=== PATIENT | male | born 1960 | race Caucasian/White ===

== ENCOUNTER 2018-03-13 19:42 | Inpatient (IN) | payer MEDICARE, MEDICAID ==
--- NOTE | 2018-03-13 20:03 | ED Physician Chart ---
ED Chief Complaint/HPI - Patient Information Date Seen:: 03/13/18 Time Seen:: 19:50 Chief Complaint:: increased agitation History of Present Illness:: Patient has reportedly been demonstrating increased agitation at his extended care facility. Allergies:: Allergies Allergy/AdvReac Type Severity Reaction Status Date / Time Penicillins Allergy Verified 03/13/18 19:55 Tetracyclines Allergy Verified 03/13/18 19:55 Historian:: Patient Review:: Transfer documents Reviewed ED Review of Systems - Review of Systems General/Constitutional: No fever, No chills, No weight loss, No weakness, No diaphoresis, No edema, No loss of appetite Skin: No skin lesions, No rash, No bruising Head: No headache, No light-headedness Eyes: No loss of vision, No pain, No diplopia ENT: No earache, No nasal drainage, No sore throat, No tinnitus Neck: No neck pain, No swelling, No thyromegaly, No stiffness, No mass noted Cardio Vascular: No chest pain, No palpitations, No PND, No orthopnea, No edema Pulmonary: No SOB, No cough, No sputum, No wheezing GI: No nausea, No vomiting, No diarrhea, No pain, No melena, No hematochezia, No constipation, No hematemesis G/U: No dysuria, No frequency, No hematuria Musculoskeletal: No bone or joint pain, No back pain, No muscle pain Endocrine: No polyuria, No polydipsia Psychiatric: Depression, No anxiety, No suicidal ideation Hematopoietic: No bruising, No lymphadenopathy Allergic/Immuno: No urticaria, No angioedema Neurological: No syncope, No focal symptoms, No weakness, No paresthesia, No headache, No seizure, No dizziness, No confusion, No vertigo ED Past Medical History - Past Medical History Past Medical History: HTN, DM, Asthma/COPD, Other (major depression; abdominal wall cellulitis) Family History: None Social History: Smoker, Alcohol, Other (plus about 5 cigarettes a day; drinks alcohol occasionally) Surgical History: other (colostomy; all tooth extracted) Psychiatricy History: Depression, Schizophrenia Medication: Reviewed Family Medical History - Family Member Mother History Unknown: Yes ED Physical Exam - Physical Examination General/Constitutional: Awake, Well-developed, well-nourished, Alert, No distress, GCS 15, Non-toxic appearing, Ambulatory Head: Atraumatic Eyes: Lids, conjuctiva normal, PERRL, EOMI Skin: No ecchymosis, Well hydrated, No lymphadenopathy Other Skin comments:: 2 out of 4 erythema both lower legs; about 3 cm of erythema adjacent to the lateral edge of colostomy bag. ENMT: External ears, nose nl, Nasal exam nl Other ENMT comments:: Edentulous Neck: Nontender, Full ROM w/o pain, No JVD, No nuchal rigidity, No bruit, No mass, No stridor Respiratory: Nl effort/Exclusion Other Respiratory comments:: Diffusely decreased breath sounds Cardio Vascular: RRR, No murmur, gallop, rubs, NL S1 S2 GI: No tenderness/rebounding/guarding, No organomegaly, No hernia, Normal BS's, No mass/bruits, No McBurney tenderness Other GI comments:: Colostomy bag left lower quadrant : No CVA tenderness Extremities: No tenderness or effusion, Full ROM, normal strength in all extremities, No edema, Normal digits & nails Neuro/Psych: Alert/oriented, DTR's symmetric, Normal sensory exam, Normal motor strength, Judgement/insight normal, Mood normal, Normal gait, No focal deficits Misc: Normal back, No paraspinal tenderness ED Labs/Radiology/EKG Results - Lab Results Results: Abnormal Lab Results 03/13/18 03/13/18 20:15 20:15 WBC 11.8 H RBC 5.23 Hgb 14.8 Hct 44.8 MCV 85.7 MCH 28.3 MCHC Differential 33.1 RDW 14.8 Plt Count 266 MPV 8.3 Neutrophils % 77.0 Lymphocytes % 11.8 L Monocytes % 8.8 Eosinophils % 2.4 Basophils % 0.0 Sodium 139 Potassium 4.0 Chloride 101 Carbon Dioxide 31.6 H Anion Gap 10.4 BUN 13 Creatinine 1.1 Est GFR ( Amer) > 60.0 Est GFR (Non-Af Amer) > 60.0 BUN/Creatinine Ratio 11.8 Glucose 126 H Calcium 9.8 Total Bilirubin 0.2 L AST 12 L ALT 17 Alkaline Phosphatase 63 Total Protein 6.7 Albumin 3.6 L Globulin 3.1 Albumin/Globulin Ratio 1.2 Triglycerides 220 H Cholesterol 173 LDL Cholesterol Direct 116 HDL Cholesterol 39 - Radiology Results Results: Chest x-ray showed pleural effusion left base; no infiltrate - EKG Interpretations Rate & Rhythm: EKG showed a sinus tach at a rate of 112 Roper: normal Comments:: Low-voltage ED Assessment - Assessment General Assessment: Abdominal wall cellulitis lateral to the colostomy bag may be the cause of the patient's leukocytosis. The cellulitis is not extensive and can probably be treated with oral antibiotics. Will give the patient Keflex 500 mg before admission to [facility] ED Septic Shock - . Is Septic Shock (SBP<90, OR Lactate>4 mmol\L) present?: No ED Reassessment (Disposition) - Reassessment Reassessment Condition:: Unchanged - Diagnosis Diagnosis:: Schizophrenia with agitation; abdominal wall cellulitis - Patient Disposition Admitted to:: [facility] Condition at Disposition:: Stable, Unchanged
[2018-03-13 20:26] LABS: % EOSINOPHILS 2.4 % (0.0-5.0); % LYMPHOCYTES 11.8 % (20.0-50.0); % MONOCYTES 8.8 % (2.0-10.0); EOSINOPHILE ABSOLUTE 0.3 Th/cmm (0.1-0.4); HEMATOCRIT 44.8 % (41.0-60); HEMOGLOBIN 14.8 gm/dL (12-16); LYMPHOCYTE ABSOLUTE 1.4 Th/cmm (1.5-3.0); MEAN CELL VOLUME 85.7 fl (80-99); MEAN CORPUSCULAR HEMOGLOBIN 28.3 pg (26.0-30.0); MEAN CORPUSCULAR HGB CONC 33.1 pg (28.0-36.0); MEAN PLATELET VOLUME 8.3 fl; NEUTROPHILE ABSOLUTE 9.1 Th/cmm (1.8-8.0); PLATELET COUNT 266 Th/cmm (150-400); RED BLOOD COUNT 5.23 Mil/cmm (4.30-5.70); RED CELL DISTRIBUTION WIDTH 14.8 % (11.5-20.0); WHITE BLOOD COUNT 11.8 Th/cmm (4.8-10.8)
[2018-03-13 20:44] LABS: ALB/GLOB RATIO 1.2 (1.0-1.8); ALBUMIN 3.6 gm/dL (4.2-5.5); ALKALINE PHOSPHATASE 63 U/L (34-104); ANION GAP 10.4 (7.0-16.0); BILIRUBIN,TOTAL 0.2 mg/dL (0.3-1.0); BUN - UREA NITROGEN 13 mg/dL (7-25); CALCIUM SERUM 9.8 mg/dL (8.6-10.3); CARBON DIOXIDE 31.6 mEq/L (21.0-31.0); CHLORIDE 101 mEq/L (98-107); CHOLESTEROL 173 mg/dL (<200); CREATININE - SERUM 1.1 mg/dL (0.7-1.3); GFR AFRICAN-AMERICAN > 60.0 ml/min (>90); GFR NON AFRICAN-AMERICAN > 60.0 ml/min; GLUCOSE 126 mg/dL (70-105); HDL -HIGH DENSITY LIPOPROTEIN 39 mg/dL (23-92); SGOT 12 U/L (13-39); SGPT/ALT 17 U/L (7-52); SODIUM SERUM 139 mEq/L (136-145); TOTAL PROTEIN,SERUM 6.7 gm/dL (6.0-8.3); TRIGLYCERIDES 220 mg/dL (<150)
[2018-03-13 20:53] LABS: URINE BILIRUBIN NEGATIVE (NEGATIVE); URINE BLOOD SMALL (NEGATIVE); URINE GLUCOSE (UA) NEGATIVE (NEGATIVE); URINE KETONE NEGATIVE (NEGATIVE); URINE LEUKOCYTE ESTERASE NEGATIVE (NEGATIVE); URINE MICROSCOPIC INDICATED? YES; URINE NITRATE NEGATIVE (NEGATIVE); URINE PROTEIN 100 mg/dL (NEGATIVE); URINE SOURCE CLEAN C; URINE UROBILINOGEN 0.2 E.U./dL (0.2 - 1.0)
[2018-03-13 21:37] LABS: URINE CLARITY CLEAR (CLEAR); URINE COLOR YELLOW
[2018-03-13 21:39] LABS: URINE RBC NONE SEEN /hpf (0-5)
[2018-03-13 21:40] LABS: URINE BACTERIA FEW /hpf (NONE SEEN); URINE EPITHELIAL CELLS NONE SEEN /lpf (FEW)
[2018-03-14 00:52] VITALS: BP 137/102
[2018-03-14] MEDS ORDERED: Fleet Enema 135 mL RC PRN (01:20)
[2018-03-14] MEDS ORDERED: Magnesium Hydroxide (MOM) 30 mL UDC PO PRN (01:20)
[2018-03-14] MEDS ORDERED: Albuterol/Ipratropium Neb 3 ML AERS HHN PRN (01:20)
--- NOTE | 2018-03-14 07:43 | Diagnostic Imaging Report ---
CHEST X-RAY: AP view INDICATION: Leukocytosis COMPARISON: None FINDINGS: There is elevation of the left hemidiaphragm with small left effusion. Increased interstitial lung markings are also noted. Left basal subsegmental atelectasis versus scarring is noted. Borderline cardiomegaly is noted. Degenerative changes of the spine are noted. IMPRESSION: Small left pleural effusion. Increased interstitial lung markings. A mild degree of congestion cannot be excluded. Left basal subsegmental atelectasis versus scarring. No focal consolidation identified.
[2018-03-14] MEDS: APAP/Oxycodone 5/325mg Tab PO PRN ×2 (11:09→17:44)
[2018-03-14] MEDS: Benztropine 1 MG TAB PO SCH ×2 (11:11→17:44)
--- NOTE | 2018-03-14 11:26 | Psychiatric Evaluation ---
DATE OF SERVICE: 03/13/2018 IDENTIFYING INFORMATION: The patient is a 58-year-old male. CHIEF COMPLAINT: "I do not know." HISTORY OF PRESENT ILLNESS: The patient was referred because of increased agitation at an extended care facility. The patient himself was a poor historian. He felt he was 60 years of age. He is conserved. He has a public guardian. He does not know why he is conserved. He is unable to participate in meaningful conversation. He got angry because of my questioning line. He admits to using weed in the past, but not recently. He believes he was in [place]. He knows he is in the hospital, he is not sure why. He said he conserved himself, he felt to like it. He is very inappropriate and sarcastic. He has a colostomy bag. All his teeth are extracted. PAST PSYCHIATRIC HISTORY: He has history of multiple prior admissions, apparently with history of some mental disorder that he was not sure of. He also has a history of depression and schizophrenia, but he was unable to tell me. He said he is always thomas. When I asked him he was in longterm, he said yes, but could not tell me why. PAST MEDICAL HISTORY: Hypertension, diabetes mellitus, asthma, COPD. He has abdominal wall cellulitis. ALLERGIES: HE IS ALLERGIC TO FISH-CONTAINING PRODUCTS, PENICILLIN, AND TETRACYCLINE. CURRENT MEDICATIONS: Include APAP, oxycodone, aspirin, and Cogentin 2 mg twice a day. He is on Apresoline for his blood pressure. He is on Risperdal 2 mg twice a day. FAMILY AND SOCIAL HISTORY: He smokes 5 cigarettes a day. He drinks alcohol occasionally. The patient is single, never . Later, he said he has 2 children, 2 girls; first, he said he did not know. He has 12th grade education. He worked as a school bus mechanic and car spotter. He used to use weed and alcohol in the past, but unable to give me exact information. He denies family psychotic disorder. He is a poor historian. He is always thomas he reports. He was in longterm, cannot tell me why. He got upset, stopped talking to me. He said he is here because his medication needs to be evaluated. MENTAL STATUS EXAMINATION: The patient is appropriately dressed, not very well groomed. He looked disheveled, disorganized, and internally preoccupied. His affect is constricted. Thoughts are concrete. Speech is coherent. He knew the date being 03/14/2018. He did not know where he was, but he thought he was at [place]. He is not sure why he is here. He reports that he sleeps well and eats well. He denies any current auditory or visual hallucination. He was paranoid towards me. He is easily agitated. He reports he is always thomas. He denies any intent to harm self or anybody. Denies any auditory or visual hallucination; however, he is a poor historian. His long-term memory is poor, cannot remember his age exactly, he believes he is 60. Recent memory is poor, he cannot remember events led to his admission. He believes he is here for medication adjustment. According to records, he was agitated, which he did not acknowledge. His immediate memory is fair, can concentrate enough to cooperate. Insight and judgment are impaired. IMPRESSION: Schizoaffective disorder, rule out chronic paranoid schizophrenia. MEDICAL DIAGNOSES: 1. Hypertension. 2. Diabetes mellitus. 3. Asthma. 4. Chronic obstructive pulmonary disease. 5. Abdominal cellulitis. PLAN: The patient will be continued with Risperdal. Adjust the medications as needed. We will do group therapy, milieu therapy, and individual therapy. ESTIMATED LENGTH OF STAY: 3-7 days. DISCHARGE CRITERIA: Decrease in agitation, irritability and paranoia. After discharge, outpatient treatment. JOB# [id number]
[2018-03-14] MEDS: Aspirin 81mg Chewable Tab PO SCH (16:57)
[2018-03-14] MEDS: Multivitamin w/ Minerals Tab PO SCH (16:57)
[2018-03-14] MEDS: Vitamin D3 2,000 IU SGL PO SCH (16:57)
--- NOTE | 2018-03-15 05:18 | History & Physical ---
ADMIT DATE: 03/14/2018 CHIEF COMPLAINT: Increased agitation. HISTORY OF PRESENT ILLNESS: The patient is a 58-year-old male with past medical history of hypertension, diabetes mellitus type 2, asthma, COPD, depression, and colostomy on the left lower quadrant, admitted from nursing facility for increased agitation. The patient was admitted to the Geropsych Unit for management of the psychosis. It was found that he had edema around the colostomy site. PAST MEDICAL HISTORY: Includes diabetes mellitus type 2, hypertension, asthma, COPD, major depression, and abdominal wall cellulitis. ALLERGIES: THE PATIENT IS ALLERGIC TO FISH CONTAINING PRODUCTS, PENICILLIN, AND TETRACYCLINE. SOCIAL HISTORY: The patient lives at nursing facility. He has no history of smoking. FAMILY HISTORY: Noncontributory. REVIEW OF SYSTEMS: GENERAL: The patient has no fever, no chills. HEENT: No diplopia, no photophobia, no sore throat. RESPIRATORY: No cough, no shortness of breath. CARDIOVASCULAR: No chest pain or palpitation. GASTROINTESTINAL: No nausea, no vomiting, and no diarrhea. The patient has abdominal pain next to the colostomy site in left lower quadrant. It is associated with redness. GENITOURINARY: No dysuria. NEUROLOGIC: No headache, no dizziness, and no focal weakness. PHYSICAL EXAMINATION: VITAL SINGS: Current vital signs shows temperature is 97.8, pulse is 97, respirations 20, blood pressure is 141/76, and oxygen saturation is 97%. GENERAL: The patient is comfortable, lying in the bed, not in acute distress. HEENT: Head is normocephalic, atraumatic. Oral cavity is moist, pink tongue. Eyes: No pallor, no icterus. PERRLA, EOMI. NECK: Supple. No JVD. No bruit. Trachea in midline. CHEST: Bilateral breath sounds. No crackles or wheezing. HEART: S1, S2 within normal limits. Regular rhythm. No murmur. No gallop. ABDOMEN: Soft, nontender, nondistended. Bowel sounds present. The patient has swelling and erythema around the G-tube site mainly in the anterolateral aspect. EXTREMITIES: No cyanosis, no clubbing, and no edema. NEUROLOGIC: He is alert, awake, and oriented x 3. LABORATORY DATA: Current lab shows WBC count is 11,800, hemoglobin is 14.8, hematocrit is 44.8, platelets are 266,000, neutrophils 77%. Sodium is 139, potassium is 4, chloride is 101, bicarbonate is 31.6, BUN is 13, creatinine is 1.1, and glucose is 126. Urinalysis, negative nitrites, negative leukoesterase. RPR is nonreactive. IMPRESSION: 1. Agitation. 2. Diabetes mellitus type 2, controlled. 3. Hypertension. 4. Abdominal wall cellulitis, colostomy malfunction. 5. Hyperlipidemia. 6. Obesity. RECOMMENDATIONS AND PLAN: We will continue home medications. start Levaquin and Flagyl. Called surgical consultation, Dr. Sergio Denis. JOB# [id number] [place]
[2018-03-15] MEDS: Multivitamin w/ Minerals Tab PO SCH (08:55)
[2018-03-15] MEDS: Vitamin D3 2,000 IU SGL PO SCH (08:56)
[2018-03-15] MEDS: Aspirin 81mg Chewable Tab PO SCH (08:57)
[2018-03-15] MEDS: Benztropine 1 MG TAB PO SCH ×2 (08:57→17:00)
[2018-03-15] MEDS: APAP/Oxycodone 5/325mg Tab PO PRN ×3 (09:12→21:34)
--- NOTE | 2018-03-15 14:55 | Infectious Disease Prog Note ---
Infectious Disease Subjective - Review of Systems Service Date: 03/15/18 Subjective: There is no new change, no fever. Infectious Disease Objective - Results Result Diagrams: 03/13/18 20:15 03/13/18 20:15 Recent Labs: Laboratory Last Values WBC 11.8 Th/cmm (4.8-10.8) H 03/13/18 20:15 RBC 5.23 Mil/cmm (4.30-5.70) 03/13/18 20:15 Hgb 14.8 gm/dL (12-16) 03/13/18 20:15 Hct 44.8 % (41.0-60) 03/13/18 20:15 MCV 85.7 fl (80-99) 03/13/18 20:15 MCH 28.3 pg (26.0-30.0) 03/13/18 20:15 MCHC Differential 33.1 pg (28.0-36.0) 03/13/18 20:15 RDW 14.8 % (11.5-20.0) 03/13/18 20:15 Plt Count 266 Th/cmm (150-400) 03/13/18 20:15 MPV 8.3 fl 03/13/18 20:15 Neutrophils % 77.0 % (40.0-80.0) 03/13/18 20:15 Lymphocytes % 11.8 % (20.0-50.0) L 03/13/18 20:15 Monocytes % 8.8 % (2.0-10.0) 03/13/18 20:15 Eosinophils % 2.4 % (0.0-5.0) 03/13/18 20:15 Basophils % 0.0 % (0.0-2.0) 03/13/18 20:15 Sodium 139 mEq/L (136-145) 03/13/18 20:15 Potassium 4.0 mEq/L (3.5-5.1) 03/13/18 20:15 Chloride 101 mEq/L (98-107) 03/13/18 20:15 Carbon Dioxide 31.6 mEq/L (21.0-31.0) H 03/13/18 20:15 Anion Gap 10.4 (7.0-16.0) 03/13/18 20:15 BUN 13 mg/dL (7-25) 03/13/18 20:15 Creatinine 1.1 mg/dL (0.7-1.3) 03/13/18 20:15 Est GFR ( Amer) > 60.0 ml/min (>90) 03/13/18 20:15 Est GFR (Non-Af Amer) > 60.0 ml/min 03/13/18 20:15 BUN/Creatinine Ratio 11.8 03/13/18 20:15 Glucose 126 mg/dL (70-105) H 03/13/18 20:15 Calcium 9.8 mg/dL (8.6-10.3) 03/13/18 20:15 Total Bilirubin 0.2 mg/dL (0.3-1.0) L 03/13/18 20:15 AST 12 U/L (13-39) L 03/13/18 20:15 ALT 17 U/L (7-52) 03/13/18 20:15 Alkaline Phosphatase 63 U/L (34-104) 03/13/18 20:15 Total Protein 6.7 gm/dL (6.0-8.3) 03/13/18 20:15 Albumin 3.6 gm/dL (4.2-5.5) L 03/13/18 20:15 Globulin 3.1 gm/dL 03/13/18 20:15 Albumin/Globulin Ratio 1.2 (1.0-1.8) 03/13/18 20:15 Triglycerides 220 mg/dL (<150) H 03/13/18 20:15 Cholesterol 173 mg/dL (<200) 03/13/18 20:15 LDL Cholesterol Direct 116 mg/dL (75-193) 03/13/18 20:15 HDL Cholesterol 39 mg/dL (23-92) 03/13/18 20:15 TSH 1.66 uIU/ml (0.34-5.60) 03/13/18 20:15 Urine Source CLEAN C 03/13/18 20:25 Urine Color YELLOW 03/13/18 20:25 Urine Clarity CLEAR (CLEAR) 03/13/18 20:25 Urine pH 6.0 (4.6 - 8.0) 03/13/18 20:25 Ur Specific [place] 1.015 (1.005-1.030) 03/13/18 20:25 Urine Protein 100 mg/dL (NEGATIVE) H 03/13/18 20:25 Urine Glucose (UA) NEGATIVE mg/dL (NEGATIVE) 03/13/18 20:25 Urine Ketones NEGATIVE mg/dL (NEGATIVE) 03/13/18 20:25 Urine Blood SMALL (NEGATIVE) H 03/13/18 20:25 Urine Nitrate NEGATIVE (NEGATIVE) 03/13/18 20:25 Urine Bilirubin NEGATIVE (NEGATIVE) 03/13/18 20:25 Urine Urobilinogen 0.2 E.U./dL (0.2 - 1.0) 03/13/18 20:25 Ur Leukocyte Esterase NEGATIVE (NEGATIVE) 03/13/18 20:25 Urine RBC NONE SEEN /hpf (0-5) 03/13/18 20:25 Urine WBC 2-5 /hpf (0-5) 03/13/18 20:25 Ur Epithelial Cells NONE SEEN /lpf (FEW) 03/13/18 20:25 Urine Bacteria FEW /hpf (NONE SEEN) 03/13/18 20:25 RPR NONREACTIVE (NONREACTIVE) 03/13/18 20:15 - Physical Exam Vitals and I&O: Vital Signs Temp 0 F 03/15/18 06:25 Pulse 94 03/15/18 07:06 Resp 20 03/15/18 07:06 BP 141/76 03/15/18 08:57 Pulse Ox 95 03/15/18 07:06 Intake & Output 03/14/18 03/15/18 03/15/18 18:59 06:59 18:59 Intake Total 1000 240 Balance 1000 240 Intake: Oral 1000 240 Other: # Voids 4 3 # Bowel Movements 1 0 Stool Characteristics Liquid Brown Active Medications: Current Medications Acetaminophen (Tylenol) 650 mg PO Q6HR PRN PRN Reason: Pain (Mild) Stop: 05/13/18 01:19 Albuterol/Ipratropium (Duoneb Neb) 3 ml HHN Q6HR PRN PRN Reason: Shortness of Breath Stop: 05/13/18 01:19 Aspirin (Aspirin Chewable) 81 mg PO DAILY [facility] [place] Stop: 05/13/18 08:59 Last Admin: 03/15/18 08:57 Dose: 81 mg Benztropine Mesylate (Cogentin) 2 mg PO BID [facility] [place] Stop: 05/13/18 08:59 Last Admin: 03/15/18 08:57 Dose: 2 mg Bisacodyl (Dulcolax 10 Mg Supp) 10 mg RC DAILY PRN PRN Reason: Constipation Stop: 05/13/18 01:19 Cyanocobalamin (Vitamin B12) mcg IM QMONTH [facility] [place] Stop: 05/13/18 01:29 Docusate Sodium (Colace) 200 mg PO DAILY [facility] [place] Stop: 05/13/18 08:59 Last Admin: 03/15/18 08:55 Dose: 200 mg Furosemide (Lasix) 20 mg PO Q12HR [facility] [place] Stop: 05/13/18 08:59 Last Admin: 03/15/18 08:57 Dose: 20 mg Hydralazine HCl (Apresoline) 25 mg PO Q6HR PRN PRN Reason: SBP >160 Stop: 05/13/18 01:19 Levofloxacin (Levaquin) 500 mg PO DAILY [facility] [place] Stop: 05/14/18 08:59 Last Admin: 03/15/18 08:56 Dose: 500 mg Lorazepam (Ativan) 0.5 mg PO Q4HR PRN; Protocol PRN Reason: Anxiety Stop: 04/13/18 00:52 Magnesium Hydroxide (Milk Of Magnesia) 30 ml PO HS PRN PRN Reason: Constipation Stop: 05/13/18 01:19 Metformin HCl (Glucophage) 500 mg PO BIDWM [facility] [place] Stop: 05/13/18 07:59 Last Admin: 03/15/18 08:54 Dose: 500 mg Ondansetron HCl (Zofran Odt) 4 mg PO Q6HR PRN PRN Reason: Nausea / Vomiting Stop: 05/13/18 01:19 Oxycodone/Acetaminophen (Percocet 5/325mg Oral Tab) 1 tab PO Q4HR PRN PRN Reason: Pain (Severe) Stop: 05/13/18 01:19 Last Admin: 03/15/18 09:12 Dose: 1 tab Risperidone (Risperdal) 2 mg PO BID [facility] [place]; Protocol Stop: 05/13/18 08:59 Last Admin: 03/15/18 08:58 Dose: 2 mg Sodium Phosphate (Fleet Enema) 135 ml RC Q48HR PRN PRN Reason: Constipation Stop: 05/13/18 01:19 Vitamin D (Vitamin D3) 2,000 iu PO DAILY [facility] Stop: 05/13/18 08:59 Last Admin: 03/15/18 08:56 Dose: 2,000 iu Zolpidem Tartrate (Ambien) 5 mg PO HSMR1 PRN PRN Reason: Insomnia Stop: 05/13/18 00:52 General: no acute distress, well developed, well nourished HEENT: atraumatic, normocephalic, PERRLA, EOMI Neck: supple, no thyromegaly Cardiovascular: S1S2, regular Lungs: clear to auscultation bilaterally, clear to percussion Abdomen: soft, other (colostomy on the LLQ with surrounding erythema), no tender , no distended Extremities: no cyanosis, no clubbing, no edema Neurological: awake, alert, oriented Skin: intact Infectious Disease Assmt/Plan - Assessment Assessment: 1. Agitation. 2. Diabetes mellitus type 2, controlled. 3. Hypertension. 4. Abdominal wall cellulitis, colostomy malfunction. 5. Hyperlipidemia. 6. Obesity. - Plan Plan: Surgery consult. Continue Levaquin and flagyl.
--- NOTE | 2018-03-15 23:37 | Progress Notes ---
DATE: 03/15/2018 SUBJECTIVE: The patient in the hospital with increased agitation, not a good historian, states he is here for "med check." States he is homeless, does not really know why he is here. Apparently, the patient may also be conserved. It seems that he is conserved. The patient really does not know why he is here or what is going on. Per staff, sleeping about 6-1/2 hours, allowing ADLs, gets angry at times, impulsive, unpredictable, had been quite agitated at previous place of residence. ASSESSMENT: The patient remains asymptomatic, not safe for a lower level of care. Ongoing symptoms, some forgetfulness, not a good historian, conserved at this time. PLAN: We will continue to monitor. Continue dosing of Risperdal. Monitor for side effects. JOB# [id number]
[2018-03-16] MEDS: Vitamin D3 2,000 IU SGL PO SCH (08:31)
[2018-03-16] MEDS: Aspirin 81mg Chewable Tab PO SCH (08:32)
[2018-03-16] MEDS: Benztropine 1 MG TAB PO SCH ×2 (08:32→16:57)
[2018-03-16] MEDS: Multivitamin w/ Minerals Tab PO SCH (08:32)
[2018-03-16] MEDS: APAP/Oxycodone 5/325mg Tab PO PRN ×2 (08:44→16:58)
--- NOTE | 2018-03-16 23:25 | Progress Notes ---
DATE: 03/16/2018 SUBJECTIVE: The patient is currently in the hospital with increased agitation, conserved. He has a local guardian. The patient states he is here for " a checkup," does not know really what is going on. Unable to really participate in any self-care planning. He has a colostomy bag, sleeping for about 7.5 hours, poor orientation, but able to make needs known and is focused on smoking. Mostly, he keeps to himself, remains somewhat impulsive, unpredictable, and impoverished thought processes, withdrawn. ASSESSMENT: The patient remains symptomatic, impulsive, still with unruly behavior, sometimes gets agitated towards staff. Medications were noted. PLAN: We will continue to monitor. Continue Risperdal. Consider dose increase. JOB# [id number]
--- NOTE | 2018-03-17 02:16 | Progress Notes ---
DATE: 03/16/2018 SUBJECTIVE: The patient is lying in the bed, not in acute distress. No fever, no chills. OBJECTIVE: VITAL SIGNS: Current vital signs shows temperature is 97.8, pulse 87, respirations 18, blood pressure 133/76. GENERAL: The patient is comfortable lying in the bed, in no acute distress. HEENT: Head is normocephalic, atraumatic. Oral cavity moist, pink. Eyes: No pallor, no icterus. PERRLA, EOMI. NECK: Supple, no JVD, no bruit. Trachea midline. CHEST: Bilateral breath sounds. No crackles or wheezing. HEART: S1, S2 within normal limits. Regular rhythm. No murmur, no gallop. ABDOMEN: Soft, nontender, nondistended. Bowel sounds present. The patient has swelling and erythema around the colostomy site, mainly in the anterolateral aspect. EXTREMITIES: No cyanosis, no clubbing, no edema. NEUROLOGIC: Alert, awake, oriented x 3. LABORATORY DATA: Current lab shows WBC 11,800, hemoglobin 14.8, hematocrit 44.8, platelets are 266,000, neutrophils 77%. Sodium 139, potassium 4, chloride 101, bicarb is 32, BUN is 13, creatinine 1.1, glucose is ____. IMPRESSION: 1. Agitation. 2. Diabetes mellitus type 2. 3. Hypertension. 4. Abdominal wall cellulitis. Colostomy site cellulitis. 5. Hyperlipidemia. 6. Obesity. RECOMMENDATION: Waiting for surgical consultation. Continue Levaquin and Flagyl. JOB# [id number]
[2018-03-17] MEDS: Aspirin 81mg Chewable Tab PO SCH (08:20)
[2018-03-17] MEDS: Benztropine 1 MG TAB PO SCH ×2 (08:20→17:30)
[2018-03-17] MEDS: Vitamin D3 2,000 IU SGL PO SCH (08:20)
[2018-03-17] MEDS: APAP/Oxycodone 5/325mg Tab PO PRN ×2 (08:21→21:24)
[2018-03-17] MEDS: Multivitamin w/ Minerals Tab PO SCH (08:21)
[2018-03-17] MEDS ORDERED: Probiotic Screen MC PRN (09:15)
--- NOTE | 2018-03-17 14:47 | Progress Notes ---
DATE: 03/17/2018 Case was discussed with staff of the patient, reviewed records. The patient continues to be unable to make safe plan for self-care. Continues to be demented, confused. Does not really knows still why he is here, unable to assess reality, looking disheveled, disorganized. He has a colostomy bag. His sleep and appetite is better. He is compliant with medication with no side effects. No sedation, no nausea, no extrapyramidal symptoms. He is on Risperdal 2 mg twice a day with no side effects. We will continue the patient in group therapy, milieu therapy, and adjust medication as needed. JOB# [id number]
[2018-03-18] MEDS: Vitamin D3 2,000 IU SGL PO SCH (09:11)
[2018-03-18] MEDS: Benztropine 1 MG TAB PO SCH ×2 (09:11→16:15)
[2018-03-18] MEDS: Lactobacillus Rhamnosus GG 15 Billion CFU CAP.SPRINK PO SCH (09:11)
[2018-03-18] MEDS: Aspirin 81mg Chewable Tab PO SCH (09:11)
[2018-03-18] MEDS: Multivitamin w/ Minerals Tab PO SCH (09:12)
[2018-03-18] MEDS: APAP/Oxycodone 5/325mg Tab PO PRN ×4 (09:12→21:29)
--- NOTE | 2018-03-18 23:06 | Progress Notes ---
DATE: 03/18/2018 SUBJECTIVE: Case was discussed with staff of the patient, reviewed records. The patient continues to be disorganized, looking disheveled. He is unable to make safe plan for self-care. He is easily agitated. He is conserved. He has no public guardian. He continues to not know why he is here. He continues to be unpredictable, impulsive with multiple prior admissions to this facility. He has been compliant with the medication with no side effects, no sedation, no nausea, and no extrapyramidal symptoms. He is on Risperdal 2 mg twice a day, working also on placement for this patient. His lab work showed CBC with high white cell count and low lymphocyte. The rest are within normal range. Chemistry panel with high blood sugar, low total bilirubin, low AST, and low albumin with the rest within normal range. His triglyceride level is high at 220. Lipid panel is within normal range. Urinalysis with proteinuria and a small amount of blood. RPR is nonreactive. Dr. Aquino is his treating psychiatrist, who will take care of his medical condition. We will continue to work with the patient in group therapy, milieu therapy, and adjust the medications as needed. JOB# [id number]
--- NOTE | 2018-03-19 04:02 | Progress Notes ---
DATE: 03/18/2018 SUBJECTIVE: The patient is lying in the bed, not in acute distress. No fever, no chills. OBJECTIVE: CURRENT VITAL SIGNS: Shows temperature is 97.8, pulse 89, respiration is 20, blood pressure 131/74. GENERAL: The patient is comfortable, lying in the bed, not in acute distress. HEENT: Head is normocephalic, atraumatic. Oral cavity is moist, pink tongue. NECK: Supple, no JVD, no carotid bruit. Trachea in midline. CHEST: Bilateral breath sounds. No crackles or wheezing. HEART: S1, S2 within normal limits. Regular rhythm. ABDOMEN: Soft, nontender, nondistended. Bowel sounds present. The patient has a colostomy in the left lower quadrant with improving erythema. EXTREMITIES: No cyanosis, no clubbing, no edema. NEUROLOGIC: Alert, awake, oriented x 3. LABORATORY DATA: Current lab shows WBC count is 11,800. IMPRESSION: 1. Abdominal wall cellulitis. 2. Agitation, improving. 3. Diabetes mellitus type 2. 4. Hypertension. 5. Hyperlipidemia. 6. Obesity. RECOMMENDATIONS: Continue Levaquin and Flagyl and await further surgical evaluation. JOB# [id number]
[2018-03-19] MEDS: Benztropine 1 MG TAB PO SCH ×2 (09:22→16:58)
[2018-03-19] MEDS: Aspirin 81mg Chewable Tab PO SCH (09:22)
[2018-03-19] MEDS: Lactobacillus Rhamnosus GG 15 Billion CFU CAP.SPRINK PO SCH (09:23)
[2018-03-19] MEDS: Vitamin D3 2,000 IU SGL PO SCH (09:23)
[2018-03-19] MEDS: Multivitamin w/ Minerals Tab PO SCH (09:23)
--- NOTE | 2018-03-19 10:52 | Progress Notes ---
DATE: 03/19/2018 Case was discussed with staff of the patient, reviewed records. The patient continues to have poor insight. [place]in[place] thinking. He is sleeping well, eating well. He does have abdominal wall cellulitis. His agitation is improving. He is sleeping better, eating better. He is on Levaquin and Flagyl because he is needing further surgical evaluation for his medical condition; however, from a psychiatric point of view, the patient is compliant with the medication with no side effects, no sedation, no nausea, no extrapyramidal symptoms and he is sleeping well, eating well. He was able to tell me the date 03/16/2018 and I will see if the patient is going to be going home to his placement or he will need surgery and we will continue with outpatient group therapy, milieu therapy, and adjust medications as needed. JOB# [id number]
[2018-03-19] MEDS: APAP/Oxycodone 5/325mg Tab PO PRN ×3 (12:38→21:38)
--- NOTE | 2018-03-19 14:13 | Infectious Disease Prog Note ---
Infectious Disease Subjective - Review of Systems Service Date: 03/19/18 Subjective: There is no new change, no fever. Infectious Disease Objective - Results Result Diagrams: 03/13/18 20:15 03/13/18 20:15 Recent Labs: Laboratory Last Values WBC 11.8 Th/cmm (4.8-10.8) H 03/13/18 20:15 RBC 5.23 Mil/cmm (4.30-5.70) 03/13/18 20:15 Hgb 14.8 gm/dL (12-16) 03/13/18 20:15 Hct 44.8 % (41.0-60) 03/13/18 20:15 MCV 85.7 fl (80-99) 03/13/18 20:15 MCH 28.3 pg (26.0-30.0) 03/13/18 20:15 MCHC Differential 33.1 pg (28.0-36.0) 03/13/18 20:15 RDW 14.8 % (11.5-20.0) 03/13/18 20:15 Plt Count 266 Th/cmm (150-400) 03/13/18 20:15 MPV 8.3 fl 03/13/18 20:15 Neutrophils % 77.0 % (40.0-80.0) 03/13/18 20:15 Lymphocytes % 11.8 % (20.0-50.0) L 03/13/18 20:15 Monocytes % 8.8 % (2.0-10.0) 03/13/18 20:15 Eosinophils % 2.4 % (0.0-5.0) 03/13/18 20:15 Basophils % 0.0 % (0.0-2.0) 03/13/18 20:15 Sodium 139 mEq/L (136-145) 03/13/18 20:15 Potassium 4.0 mEq/L (3.5-5.1) 03/13/18 20:15 Chloride 101 mEq/L (98-107) 03/13/18 20:15 Carbon Dioxide 31.6 mEq/L (21.0-31.0) H 03/13/18 20:15 Anion Gap 10.4 (7.0-16.0) 03/13/18 20:15 BUN 13 mg/dL (7-25) 03/13/18 20:15 Creatinine 1.1 mg/dL (0.7-1.3) 03/13/18 20:15 Est GFR ( Amer) > 60.0 ml/min (>90) 03/13/18 20:15 Est GFR (Non-Af Amer) > 60.0 ml/min 03/13/18 20:15 BUN/Creatinine Ratio 11.8 03/13/18 20:15 Glucose 126 mg/dL (70-105) H 03/13/18 20:15 Calcium 9.8 mg/dL (8.6-10.3) 03/13/18 20:15 Total Bilirubin 0.2 mg/dL (0.3-1.0) L 03/13/18 20:15 AST 12 U/L (13-39) L 03/13/18 20:15 ALT 17 U/L (7-52) 03/13/18 20:15 Alkaline Phosphatase 63 U/L (34-104) 03/13/18 20:15 Total Protein 6.7 gm/dL (6.0-8.3) 03/13/18 20:15 Albumin 3.6 gm/dL (4.2-5.5) L 03/13/18 20:15 Globulin 3.1 gm/dL 03/13/18 20:15 Albumin/Globulin Ratio 1.2 (1.0-1.8) 03/13/18 20:15 Triglycerides 220 mg/dL (<150) H 03/13/18 20:15 Cholesterol 173 mg/dL (<200) 03/13/18 20:15 LDL Cholesterol Direct 116 mg/dL (75-193) 03/13/18 20:15 HDL Cholesterol 39 mg/dL (23-92) 03/13/18 20:15 TSH 1.66 uIU/ml (0.34-5.60) 03/13/18 20:15 Urine Source CLEAN C 03/13/18 20:25 Urine Color YELLOW 03/13/18 20:25 Urine Clarity CLEAR (CLEAR) 03/13/18 20:25 Urine pH 6.0 (4.6 - 8.0) 03/13/18 20:25 Ur Specific [place] 1.015 (1.005-1.030) 03/13/18 20:25 Urine Protein 100 mg/dL (NEGATIVE) H 03/13/18 20:25 Urine Glucose (UA) NEGATIVE mg/dL (NEGATIVE) 03/13/18 20:25 Urine Ketones NEGATIVE mg/dL (NEGATIVE) 03/13/18 20:25 Urine Blood SMALL (NEGATIVE) H 03/13/18 20:25 Urine Nitrate NEGATIVE (NEGATIVE) 03/13/18 20:25 Urine Bilirubin NEGATIVE (NEGATIVE) 03/13/18 20:25 Urine Urobilinogen 0.2 E.U./dL (0.2 - 1.0) 03/13/18 20:25 Ur Leukocyte Esterase NEGATIVE (NEGATIVE) 03/13/18 20:25 Urine RBC NONE SEEN /hpf (0-5) 03/13/18 20:25 Urine WBC 2-5 /hpf (0-5) 03/13/18 20:25 Ur Epithelial Cells NONE SEEN /lpf (FEW) 03/13/18 20:25 Urine Bacteria FEW /hpf (NONE SEEN) 03/13/18 20:25 RPR NONREACTIVE (NONREACTIVE) 03/13/18 20:15 - Physical Exam Vitals and I&O: Vital Signs Temp 98.4 F 03/19/18 06:37 Pulse 93 03/19/18 06:37 Resp 19 03/19/18 06:37 BP 124/87 03/19/18 09:23 Pulse Ox 94 03/19/18 06:37 Intake & Output 03/18/18 03/19/18 03/19/18 18:59 06:59 18:59 Intake Total 1200 240 Output Total 900 Balance 300 240 Intake: Oral 1200 240 Output: Stool 900 Other: # Voids 4 3 # Bowel Movements 0 Stool Characteristics Liquid Liquid Liquid Brown Brown Brown Active Medications: Current Medications Acetaminophen (Tylenol) 650 mg PO Q6HR PRN PRN Reason: Pain (Mild) Stop: 05/13/18 01:19 Albuterol/Ipratropium (Duoneb Neb) 3 ml HHN Q6HR PRN PRN Reason: Shortness of Breath Stop: 05/13/18 01:19 Aspirin (Aspirin Chewable) 81 mg PO DAILY [facility] Stop: 05/13/18 08:59 Last Admin: 03/19/18 09:22 Dose: 81 mg Benztropine Mesylate (Cogentin) 2 mg PO BID [facility] Stop: 05/13/18 08:59 Last Admin: 03/19/18 09:22 Dose: 2 mg Bisacodyl (Dulcolax 10 Mg Supp) 10 mg RC DAILY PRN PRN Reason: Constipation Stop: 05/13/18 01:19 Cyanocobalamin (Vitamin B12) 1,000 mcg IM QMONTH [facility] Stop: 05/27/18 08:59 Docusate Sodium (Colace) 200 mg PO DAILY [facility] Stop: 05/13/18 08:59 Last Admin: 03/19/18 09:23 Dose: 200 mg Furosemide (Lasix) 20 mg PO Q12HR [facility] Stop: 05/13/18 08:59 Last Admin: 03/19/18 09:23 Dose: 20 mg Hydralazine HCl (Apresoline) 25 mg PO Q6HR PRN PRN Reason: SBP >160 Stop: 05/13/18 01:19 Lactobacillus Rhamnosus (Culturelle 15b) 1 each PO DAILY [facility] Stop: 05/17/18 08:59 Last Admin: 03/19/18 09:23 Dose: 1 each Levofloxacin (Levaquin) 500 mg PO DAILY [facility] Stop: 05/14/18 08:59 Last Admin: 03/19/18 09:23 Dose: 500 mg Lorazepam (Ativan) 0.5 mg PO Q4HR PRN; Protocol PRN Reason: Anxiety Stop: 04/13/18 00:52 Magnesium Hydroxide (Milk Of Magnesia) 30 ml PO HS PRN PRN Reason: Constipation Stop: 05/13/18 01:19 Metformin HCl (Glucophage) 500 mg PO BIDWM [facility] Stop: 05/13/18 07:59 Last Admin: 03/19/18 08:45 Dose: 500 mg Miscellaneous (Probiotic Screen) 1 ea MC PRN PRN PRN Reason: PROTOCOL Stop: 05/16/18 09:14 Ondansetron HCl (Zofran Odt) 4 mg PO Q6HR PRN PRN Reason: Nausea / Vomiting Stop: 05/13/18 01:19 Oxycodone/Acetaminophen (Percocet 5/325mg Oral Tab) 1 tab PO Q4HR PRN PRN Reason: Pain (Severe) Stop: 05/13/18 01:19 Last Admin: 03/19/18 12:38 Dose: 1 tab Risperidone (Risperdal) 2 mg PO BID [facility]; Protocol Stop: 05/13/18 08:59 Last Admin: 03/19/18 09:23 Dose: 2 mg Sodium Phosphate (Fleet Enema) 135 ml RC Q48HR PRN PRN Reason: Constipation Stop: 05/13/18 01:19 Vitamin D (Vitamin D3) 2,000 iu PO DAILY [facility] Stop: 05/13/18 08:59 Last Admin: 03/19/18 09:23 Dose: 2,000 iu Zolpidem Tartrate (Ambien) 5 mg PO HSMR1 PRN PRN Reason: Insomnia Stop: 05/13/18 00:52 Last Admin: 03/18/18 21:29 Dose: 5 mg General: no acute distress, well developed, well nourished HEENT: atraumatic, normocephalic, PERRLA Neck: supple, no thyromegaly, no lymphadenopathy Cardiovascular: S1S2, regular Lungs: clear to auscultation bilaterally, clear to percussion Abdomen: soft, other (colostomy site ), no tender, no distended, no mass Extremities: no cyanosis, no clubbing, no edema Neurological: awake, alert, oriented Infectious Disease Assmt/Plan - Assessment Assessment: 1. Agitation. 2. Diabetes mellitus type 2, controlled. 3. Hypertension. 4. Abdominal wall cellulitis, colostomy malfunction. 5. Hyperlipidemia. 6. Obesity. - Plan Plan: Surgery consult. Continue Levaquin and flagyl. Nutritional Asmnt/Malnutr-PDOC - Dietary Evaluation Malnutrition Findings (Please click <Entered> for more info): Nutritional Asmnt/Malnutrition Start: 03/17/18 15: 23 Text: Status: Complete Freq: Protocol: Document 03/17/18 15:23 LCHENG (Rec: 03/17/18 15:31 [email or web address] [id number]) Nutritional Asmnt/Malnutrition Patient General Information Nutritional Screening Moderate Risk Diagnosis psychosis NOS Pertinent Medical Hx/Surgical Hx HTN, DM, asthma/COPD, major depression, abdominal wall cellulitis, depression, schizophrenia Subjective Information Consult received for colostomy marilyn-stomal non-intact skin. Pt seen in patio at time of visit. Per EMR, PO intake 100% of meals, meeting 100% of nutritional needs. Current Diet Order/ Nutrition Support regular Pertinent Medications vit B12, colace, lasix, culturelle, lvaquin, glucophage, vit D3 Pertinent Labs 12/13 Glucose 126, Alb 3.6 Nutritional Hx/Data Height 1.88 m Height (Calculated Centimeters) 188.0 Current Weight (lbs) 126.552 kg Weight (Calculated Kilograms) 126.6 Weight (Calculated Grams) 834403.3 [place] Body Weight 190 Body Mass Index (BMI) 35.8 Weight Status Obese GI Symptoms GI Symptoms None Last BM 03/16 Difficult in: None Food Allergies Yes: fish containing products Skin Integrity/Comment: ABDOMINAL CELLULITIS Current %PO Good (75-100%) Estimated Nutritional Goals BEE in Kcals: Adj wt of IBW Calories/Kcals/Kg 25-30 Kcals Calculated 7084-2289 Protein: Adj wt of IBW Protein g/k Protein Calculated 96 Fluid: ml 2400-2880ml (1ml/kcal) Nutritional Problem 1. Problem Problem increased protein needs Etiology increased metabolid demand for wound healing Signs/Symptoms: non-intact skin No current Nutrition Prob Problem N/A Malnutrition Alert Is there a minimum of two criteria No selected? Query Text:Check all the applicable criteria. A minimum of two criteria are recommended for diagnosis of either severe or non-severe malnutrition. Malnutrition Related to Morbid Obesity Malnutrition related to morbid obesity No Intervention/Recommendation Comments 1. Continue with regular diet as ordered. 2. Monitor PO intake, wt, labs and skin integrity 3. F/U as low risk in 7 days, 03/24 Expected Outcomes/Goals Expected Outcomes/Goals 1. PO intake to meet at least 75% of nutritional needs. 2. Wt stability, skin to remain intact, labs to approach WNL.
--- NOTE | 2018-03-20 01:38 | Consultation ---
DATE OF CONSULTATION: 03/19/2018 SURGICAL CONSULTATION HISTORY OF PRESENT ILLNESS: The patient is a 58-year-old male with past medical history of hypertension, diabetes, asthma, COPD, depression, and colostomy in left lower quadrant, admitted from nursing facility for increased agitation admitted to the Geropsych Unit for management of the psychosis. He has some pain, discomfort, edema, and a little bit of redness around the colostomy site. Surgical consultation requested to evaluate. PAST MEDICAL HISTORY: Diabetes type 2, hypertension, asthma, COPD, major depression, psych disorder, abdominal wall cellulitis. ALLERGIES: FISH-CONTAINING PRODUCTS, PENICILLIN, and TETRACYCLINE. SOCIAL HISTORY: Lives at a nursing facility. FAMILY HISTORY: Noncontributory. REVIEW OF SYSTEMS: Denies any chest pain, shortness of breath or urinary type symptoms. He has some abdominal discomfort around his colostomy site, but his colostomy has been functional. PHYSICAL EXAMINATION: VITAL SIGNS: Weight is 126 kilograms. BMI of 35.8. He is afebrile. Vital signs are stable. Pulse rate of 100. Blood pressure otherwise stable. GENERAL: He is resting in bed comfortably, in no acute distress. CHEST: Clear to auscultation bilaterally. CARDIOVASCULAR: Regular rate. ABDOMEN: Soft. He has a colostomy in left lower quadrant. He has some edema of his colostomy site and some mild erythema surrounding the colostomy, but this seems more related to contact dermatitis than his nonblanching. There is no fluctuance or as mildly tender though there is no guarding, rebound or generalized peritoneal signs. NEUROVASCULAR AND EXTREMITIES: Otherwise normal. LABORATORY DATA: His white blood cell count 11.8, H and H of 14.8 and 44.8, platelet count is 266. His CO2 is 31.6, glucose 126, total bilirubin 0.2, AST 12. MEDICATIONS: He is on Tylenol, aspirin, Lasix, hydralazine, Levaquin, oxycodone, and Risperdal. IMPRESSION AND PLAN: The patient with multiple medical problems, admitted to geropsych unit. The patient with agitation, diabetes, and hypertension. Colostomy in left lower quadrant with some edema and some pain, tenderness, and concern for cellulitis, although not very well appreciated on examination, there is some tenderness, but there is no obvious cellulitis at that site. He does have a mild leukocytosis. He is on IV antibiotics. Continue this. I have ordered a CT scan of the abdomen and pelvis to further evaluate. Colostomy is functional at this time. JOB# [id number]
[2018-03-20] MEDS: Benztropine 1 MG TAB PO SCH ×2 (08:56→17:19)
[2018-03-20] MEDS: Lactobacillus Rhamnosus GG 15 Billion CFU CAP.SPRINK PO SCH (08:57)
[2018-03-20] MEDS: Vitamin D3 2,000 IU SGL PO SCH (08:57)
[2018-03-20] MEDS: Aspirin 81mg Chewable Tab PO SCH (08:57)
[2018-03-20] MEDS: APAP/Oxycodone 5/325mg Tab PO PRN ×2 (09:05→21:26)
[2018-03-20] MEDS: Multivitamin w/ Minerals Tab PO SCH (10:38)
--- NOTE | 2018-03-20 13:14 | Infectious Disease Prog Note ---
Infectious Disease Subjective - Review of Systems Service Date: 03/20/18 Subjective: There is no new change, no fever. Infectious Disease Objective - Results Result Diagrams: 03/13/18 20:15 03/13/18 20:15 Recent Labs: Laboratory Last Values WBC 11.8 Th/cmm (4.8-10.8) H 03/13/18 20:15 RBC 5.23 Mil/cmm (4.30-5.70) 03/13/18 20:15 Hgb 14.8 gm/dL (12-16) 03/13/18 20:15 Hct 44.8 % (41.0-60) 03/13/18 20:15 MCV 85.7 fl (80-99) 03/13/18 20:15 MCH 28.3 pg (26.0-30.0) 03/13/18 20:15 MCHC Differential 33.1 pg (28.0-36.0) 03/13/18 20:15 RDW 14.8 % (11.5-20.0) 03/13/18 20:15 Plt Count 266 Th/cmm (150-400) 03/13/18 20:15 MPV 8.3 fl 03/13/18 20:15 Neutrophils % 77.0 % (40.0-80.0) 03/13/18 20:15 Lymphocytes % 11.8 % (20.0-50.0) L 03/13/18 20:15 Monocytes % 8.8 % (2.0-10.0) 03/13/18 20:15 Eosinophils % 2.4 % (0.0-5.0) 03/13/18 20:15 Basophils % 0.0 % (0.0-2.0) 03/13/18 20:15 Sodium 139 mEq/L (136-145) 03/13/18 20:15 Potassium 4.0 mEq/L (3.5-5.1) 03/13/18 20:15 Chloride 101 mEq/L (98-107) 03/13/18 20:15 Carbon Dioxide 31.6 mEq/L (21.0-31.0) H 03/13/18 20:15 Anion Gap 10.4 (7.0-16.0) 03/13/18 20:15 BUN 13 mg/dL (7-25) 03/13/18 20:15 Creatinine 1.1 mg/dL (0.7-1.3) 03/13/18 20:15 Est GFR ( Amer) > 60.0 ml/min (>90) 03/13/18 20:15 Est GFR (Non-Af Amer) > 60.0 ml/min 03/13/18 20:15 BUN/Creatinine Ratio 11.8 03/13/18 20:15 Glucose 126 mg/dL (70-105) H 03/13/18 20:15 Calcium 9.8 mg/dL (8.6-10.3) 03/13/18 20:15 Total Bilirubin 0.2 mg/dL (0.3-1.0) L 03/13/18 20:15 AST 12 U/L (13-39) L 03/13/18 20:15 ALT 17 U/L (7-52) 03/13/18 20:15 Alkaline Phosphatase 63 U/L (34-104) 03/13/18 20:15 Total Protein 6.7 gm/dL (6.0-8.3) 03/13/18 20:15 Albumin 3.6 gm/dL (4.2-5.5) L 03/13/18 20:15 Globulin 3.1 gm/dL 03/13/18 20:15 Albumin/Globulin Ratio 1.2 (1.0-1.8) 03/13/18 20:15 Triglycerides 220 mg/dL (<150) H 03/13/18 20:15 Cholesterol 173 mg/dL (<200) 03/13/18 20:15 LDL Cholesterol Direct 116 mg/dL (75-193) 03/13/18 20:15 HDL Cholesterol 39 mg/dL (23-92) 03/13/18 20:15 TSH 1.66 uIU/ml (0.34-5.60) 03/13/18 20:15 Urine Source CLEAN C 03/13/18 20:25 Urine Color YELLOW 03/13/18 20:25 Urine Clarity CLEAR (CLEAR) 03/13/18 20:25 Urine pH 6.0 (4.6 - 8.0) 03/13/18 20:25 Ur Specific [place] 1.015 (1.005-1.030) 03/13/18 20:25 Urine Protein 100 mg/dL (NEGATIVE) H 03/13/18 20:25 Urine Glucose (UA) NEGATIVE mg/dL (NEGATIVE) 03/13/18 20:25 Urine Ketones NEGATIVE mg/dL (NEGATIVE) 03/13/18 20:25 Urine Blood SMALL (NEGATIVE) H 03/13/18 20:25 Urine Nitrate NEGATIVE (NEGATIVE) 03/13/18 20:25 Urine Bilirubin NEGATIVE (NEGATIVE) 03/13/18 20:25 Urine Urobilinogen 0.2 E.U./dL (0.2 - 1.0) 03/13/18 20:25 Ur Leukocyte Esterase NEGATIVE (NEGATIVE) 03/13/18 20:25 Urine RBC NONE SEEN /hpf (0-5) 03/13/18 20:25 Urine WBC 2-5 /hpf (0-5) 03/13/18 20:25 Ur Epithelial Cells NONE SEEN /lpf (FEW) 03/13/18 20:25 Urine Bacteria FEW /hpf (NONE SEEN) 03/13/18 20:25 RPR NONREACTIVE (NONREACTIVE) 03/13/18 20:15 - Physical Exam Vitals and I&O: Vital Signs Temp 96.8 F 03/20/18 05:39 Pulse 96 03/20/18 07:25 Resp 18 03/20/18 07:25 BP 138/81 03/20/18 08:57 Pulse Ox 95 03/20/18 07:25 Intake & Output 03/19/18 03/20/18 03/20/18 18:59 06:59 18:59 Intake Total 1000 120 Balance 1000 120 Intake: Oral 1000 120 Other: # Voids 4 3 # Bowel Movements 1 0 Stool Characteristics Liquid Liquid Liquid Brown Brown Brown Active Medications: Current Medications Acetaminophen (Tylenol) 650 mg PO Q6HR PRN PRN Reason: Pain (Mild) Stop: 05/13/18 01:19 Albuterol/Ipratropium (Duoneb Neb) 3 ml HHN Q6HR PRN PRN Reason: Shortness of Breath Stop: 05/13/18 01:19 Aspirin (Aspirin Chewable) 81 mg PO DAILY [facility] Stop: 05/13/18 08:59 Last Admin: 03/20/18 08:57 Dose: 81 mg Benztropine Mesylate (Cogentin) 2 mg PO BID [facility] Stop: 05/13/18 08:59 Last Admin: 03/20/18 08:56 Dose: 2 mg Bisacodyl (Dulcolax 10 Mg Supp) 10 mg RC DAILY PRN PRN Reason: Constipation Stop: 05/13/18 01:19 Cyanocobalamin (Vitamin B12) 1,000 mcg IM QMONTH [facility] Stop: 05/27/18 08:59 Docusate Sodium (Colace) 200 mg PO DAILY [facility] Stop: 05/13/18 08:59 Last Admin: 03/20/18 09:00 Dose: 200 mg Furosemide (Lasix) 20 mg PO Q12HR [facility] Stop: 05/13/18 08:59 Last Admin: 03/20/18 08:57 Dose: 20 mg Hydralazine HCl (Apresoline) 25 mg PO Q6HR PRN PRN Reason: SBP >160 Stop: 05/13/18 01:19 Lactobacillus Rhamnosus (Culturelle 15b) 1 each PO DAILY [facility] Stop: 05/17/18 08:59 Last Admin: 03/20/18 08:57 Dose: 1 each Levofloxacin (Levaquin) 500 mg PO DAILY [facility] Stop: 05/14/18 08:59 Last Admin: 03/20/18 08:57 Dose: 500 mg Lorazepam (Ativan) 0.5 mg PO Q4HR PRN; Protocol PRN Reason: Anxiety Stop: 04/13/18 00:52 Last Admin: 03/19/18 20:37 Dose: 0.5 mg Magnesium Hydroxide (Milk Of Magnesia) 30 ml PO HS PRN PRN Reason: Constipation Stop: 05/13/18 01:19 Metformin HCl (Glucophage) 500 mg PO BIDWM [facility] Stop: 05/13/18 07:59 Last Admin: 03/20/18 08:57 Dose: 500 mg Miscellaneous (Probiotic Screen) 1 ea MC PRN PRN PRN Reason: PROTOCOL Stop: 05/16/18 09:14 Ondansetron HCl (Zofran Odt) 4 mg PO Q6HR PRN PRN Reason: Nausea / Vomiting Stop: 05/13/18 01:19 Oxycodone/Acetaminophen (Percocet 5/325mg Oral Tab) 1 tab PO Q4HR PRN PRN Reason: Pain (Severe) Stop: 05/13/18 01:19 Last Admin: 03/20/18 09:05 Dose: 1 tab Risperidone (Risperdal) 2 mg PO BID [facility]; Protocol Stop: 05/13/18 08:59 Last Admin: 03/20/18 08:56 Dose: 2 mg Sodium Phosphate (Fleet Enema) 135 ml RC Q48HR PRN PRN Reason: Constipation Stop: 05/13/18 01:19 Vitamin D (Vitamin D3) 2,000 iu PO DAILY [facility] Stop: 05/13/18 08:59 Last Admin: 03/20/18 08:57 Dose: 2,000 iu Zolpidem Tartrate (Ambien) 5 mg PO HSMR1 PRN PRN Reason: Insomnia Stop: 05/13/18 00:52 Last Admin: 03/19/18 21:38 Dose: 5 mg General: no acute distress, well developed, well nourished HEENT: atraumatic, normocephalic, PERRLA, EOMI Neck: supple, no thyromegaly, no lymphadenopathy Cardiovascular: S1S2, regular Lungs: clear to auscultation bilaterally, clear to percussion, rhonchi Abdomen: soft, other (LLQ colostomy, improving redness. surgical scay intact.), no tender, no distended, no mass Extremities: no cyanosis, no clubbing, no edema Neurological: awake, alert, oriented Skin: intact Infectious Disease Assmt/Plan - Assessment Assessment: 1. Agitation. 2. Diabetes mellitus type 2, controlled. 3. Hypertension. 4. Abdominal wall cellulitis, colostomy malfunction. 5. Hyperlipidemia. 6. Obesity. - Plan Plan: Continue Levaquin and flagyl. CT a/p Nutritional Asmnt/Malnutr-PDOC - Dietary Evaluation Malnutrition Findings (Please click <Entered> for more info): Nutritional Asmnt/Malnutrition Start: 03/17/18 15: 23 Text: Status: Complete Freq: Protocol: Document 03/17/18 15:23 LCHENG (Rec: 03/17/18 15:31 [email or web address] [id number]) Nutritional Asmnt/Malnutrition Patient General Information Nutritional Screening Moderate Risk Diagnosis psychosis NOS Pertinent Medical Hx/Surgical Hx HTN, DM, asthma/COPD, major depression, abdominal wall cellulitis, depression, schizophrenia Subjective Information Consult received for colostomy marilyn-stomal non-intact skin. Pt seen in patio at time of visit. Per EMR, PO intake 100% of meals, meeting 100% of nutritional needs. Current Diet Order/ Nutrition Support regular Pertinent Medications vit B12, colace, lasix, culturelle, lvaquin, glucophage, vit D3 Pertinent Labs 03/13 Glucose 126, Alb 3.6 Nutritional Hx/Data Height 1.88 m Height (Calculated Centimeters) 188.0 Current Weight (lbs) 126.552 kg Weight (Calculated Kilograms) 126.6 Weight (Calculated Grams) 264000.3 [place] Body Weight 190 Body Mass Index (BMI) 35.8 Weight Status Obese GI Symptoms GI Symptoms None Last BM 03/16 Difficult in: None Food Allergies Yes: fish containing products Skin Integrity/Comment: ABDOMINAL CELLULITIS Current %PO Good (75-100%) Estimated Nutritional Goals BEE in Kcals: Adj wt of IBW Calories/Kcals/Kg 25-30 Kcals Calculated 8506-1039 Protein: Adj wt of IBW Protein g/k Protein Calculated 96 Fluid: ml 2400-2880ml (1ml/kcal) Nutritional Problem 1. Problem Problem increased protein needs Etiology increased metabolid demand for wound healing Signs/Symptoms: non-intact skin No current Nutrition Prob Problem N/A Malnutrition Alert Is there a minimum of two criteria No selected? Query Text:Check all the applicable criteria. A minimum of two criteria are recommended for diagnosis of either severe or non-severe malnutrition. Malnutrition Related to Morbid Obesity Malnutrition related to morbid obesity No Intervention/Recommendation Comments 1. Continue with regular diet as ordered. 2. Monitor PO intake, wt, labs and skin integrity 3. F/U as low risk in 7 days, 03/24 Expected Outcomes/Goals Expected Outcomes/Goals 1. PO intake to meet at least 75% of nutritional needs. 2. Wt stability, skin to remain intact, labs to approach WNL.
--- NOTE | 2018-03-20 14:15 | Diagnostic Imaging Report ---
CT scan abdomen and pelvis without intravenous contrast HISTORY: Pain, prior surgery Total DLP equals 898 CTDI equals 16.1 Axial sections were obtained from the xiphoid process down to the pubic symphysis. The liver exhibits a homogeneous parenchyma. No focal lesions. The spleen appears normal. No abnormality seen in the region of the pancreas. No significant focal renal lesions. There is an approximate 10.0 cm defect within the lower anterior abdominal wall associated with a ventral hernia containing nondilated bowel. In addition, there is an approximate 3.6 cm defect within the left lateral portion of the anterior abdominal wall associated with nondilated bowel and is associated with ostomy placement. Surgical changes noted in the region of the cecum and right lower quadrant. Surgical clips also noted in the left abdomen. Preservation of normal fat planes within the pelvis. No abnormal soft tissue masses or abnormal fluid collections. IMPRESSION: 1. Relatively large ventral hernia associated with multiple loops of nondilated bowel 2. Defect as described above within the left lateral anterior abdominal wall associated with multiple loops of nondilated bowel and ostomy placement. 2. Additional surgical changes as noted above
--- NOTE | 2018-03-20 23:49 | Progress Notes ---
DATE: 03/20/2018 Case was discussed with staff of the patient, reviewed records. The patient has been cooperative, calm, confused, concrete thinking, unable to make safe plan for self-care, but in general, he is following direction. He goes to the group room and he participates. He feeds himself. His lab work showed white cell count is high, high lymphocyte. Chemistry panel with high carbon dioxide, high blood sugar, low bilirubin and AST. The rest within normal range and low albumin. Cholesterol is high at 220. TSH within normal range. Urinalysis with proteinuria and small blood. RPR nonreactive. We will continue working on discharge plan. Apparently, he came from a SNF facility, will be going to the same place and will continue outpatient group therapy, milieu therapy, adjust the medication as needed. JOB# [id number]
[2018-03-21] MEDS: Multivitamin w/ Minerals Tab PO SCH (08:57)
[2018-03-21] MEDS: Vitamin D3 2,000 IU SGL PO SCH (08:57)
[2018-03-21] MEDS: Aspirin 81mg Chewable Tab PO SCH (08:57)
[2018-03-21] MEDS: Lactobacillus Rhamnosus GG 15 Billion CFU CAP.SPRINK PO SCH (08:57)
[2018-03-21] MEDS: Benztropine 1 MG TAB PO SCH ×2 (09:00→16:44)
[2018-03-21] MEDS: APAP/Oxycodone 5/325mg Tab PO PRN (10:24)
--- NOTE | 2018-03-21 13:02 | Discharge Summary ---
DATE OF DISCHARGE: 03/21/2018 IDENTIFYING INFORMATION: The patient is a 58-year-old male. CHIEF COMPLAINT: "I don't know." HISTORY OF PRESENT ILLNESS: The patient is referred because of increased agitation from an extended care facility. Himself, the patient is a poor historian. He felt he is 60 years of age. He is conserved. He has a public guardian. He does not know why he is conserved. Unable to participate in a meaningful conversation or make safe plan for his self-care. He got angry when I was questioning him. He admits to using weed in the past but not recently. He believes he is in [place]. He knows he is in a hospital but not sure why. He said that he is conserved himself, that he felt like it, is very inappropriate and sarcastic. The patient has a colostomy bag. All his teeth are extracted. PAST PSYCHIATRIC HISTORY: Multiple prior admissions with a history of some mental disorder that he is not sure of. He has also a history of depression and schizophrenia, unable to tell me any details. He said he is always thomas. When I asked him if he was in [facility], he said yes, could not tell me why. PAST MEDICAL HISTORY: Hypertension, diabetes mellitus, asthma, COPD, abdominal wall cellulitis. ALLERGIES: HE IS ALLERGIC TO FISH-CONTAINING PRODUCTS, PENICILLIN, AND TETRACYCLINE. COURSE IN THE HOSPITAL: The patient was continued with medications. Prior to admission, he was on albuterol inhaler, aspirin, Percocet, benztropine 2 mg twice a day, Dulcolax 1 tablet daily as needed, docusate sodium 200 mg daily, Lasix 20 mg twice a day, Apresoline 25 mg six hours as needed. The patient also is on Levaquin for cellulitis, metformin 500 mg twice a day, multivitamin, and probiotic, he is on Risperdal 2 mg twice a day. The patient progressively got better. He is not acting in anyway dangerous while he is here. He is sleeping well and eating well. He does have a nursing facility that is ready for him however. He was seen by Dr. Aquino who is an infectious disease doctor. He does have colostomy malfunction, diabetes, agitation. Continue on Levaquin and Flagyl. I consulted with Isaias, the charge nurse, to make sure he is cleared medically to leave, otherwise he needs to go to Med/Surg and if everything is okay then he can be discharged. The patient is not acting in anyway dangerous, sleeping well and eating well, no acting out behavior. FINAL DIAGNOSES: 1. Schizoaffective disorder, rule out chronic paranoid schizophrenia. 2. Medical diagnoses: Hypertension, diabetes mellitus, asthma, chronic obstructive pulmonary disease, abdominal wall cellulitis, colostomy bag. PLAN: The patient, if medically stable, will be going back to his nursing facility and will follow up with all his doctors including the Infectious Disease doctor. EXPECTED OUTCOME: Stable if the patient complies with the above. JOB# [id number]
--- NOTE | 2018-03-22 01:21 | Progress Notes ---
DATE: 03/21/2018 SURGICAL PROGRESS NOTE OBJECTIVE: VITAL SIGNS: The patient is afebrile, vital signs stable. GENERAL: He is awake, follows commands, in no acute distress, in the dining bland, having coffee and with no nausea, vomiting or abdominal discomfort or pain. HEENT AND NECK: Within normal limits. CHEST: Clear to auscultation bilaterally. CARDIAC: Regular rate. ABDOMEN: Soft, nontender, nondistended. There is some discoloration around and fullness of his paracolostomy site in left lower quadrant, but his colostomy site is functional and there is no blanching erythema, tenderness or guarding, rebound or cellulitis. NEUROVASCULAR AND EXTREMITIES: Otherwise normal. LABORATORY AND DIAGNOSTIC DATA: The white blood cell count has not been repeated since 03/13/2018. The patient had a CT scan of the abdomen and pelvis done yesterday reveals relatively large ventral hernia associated with multiple loops of nondilated bowel from the parastomal hernia measures about 3.6 cm defect within the left lateral portion of the anterior abdominal wall associated with nondilated bowel associated with ostomy placement, post-surgical changes are noted. There is no obvious necrotizing fasciitis of the abdominal wall. MEDICATIONS: The patient is on acetaminophen, aspirin, Colace, Lasix, hydralazine, Levaquin p.o. No IV antibiotics. IMPRESSION AND PLAN: Stable abdominal wall. No obvious signs of cellulitis or abdominal infection noted around the colostomy site. There is some fullness of the colostomy site, suggestive of paracolostomy hernia, but the colostomy is functional at this time. He is fairly asymptomatic at this time and has a nontender examination. No acute surgical issues at this time. The paracolostomy hernia is a very complicated problem that can be addressed as an outpatient. Unclear about the reason why he even has a colostomy in the first place and he is a poor historian. Consideration possibly with more careful research as to the original operation is the possibility of reversing his colostomy and fixing the paracolostomy ventral hernia at the same time, but this is a big endeavor and may be a case that is most suitable by a tertiary care facility center because of his obesity and medical comorbidities and psych issues. Complete course of Levaquin p.o. antibiotics and stop it. No surgical intervention is required here at [facility] at this moment. [facility]# [id number]
== END 2018-03-21 18:00 | DRG 885 ==
LOC: ER 19:42 → GERO 21:58
PROVIDERS: ADMIT Psychiatry & Neurology Psychiatry; ATTEND Psychiatry & Neurology Psychiatry
DX: F25.9 Schizoaffective disorder, unspecified (principal); K94.03 Colostomy malfunction; L03.311 Cellulitis of abdominal wall; I10 Essential (primary) hypertension; E11.9 Type 2 diabetes mellitus without complications; J44.9 Chronic obstructive pulmonary disease, unspecified; F17.210 Nicotine dependence, cigarettes, uncomplicated; E66.9 Obesity, unspecified; Y83.8 Other surgical procedures as the cause of abnormal reaction of the patient, or of later complication, without mention of misadventure at the time of the procedure; Y92.89 Other specified places as the place of occurrence of the external cause; Z88.0 Allergy status to penicillin; Z91.013 Allergy to seafood; Z68.35 Body mass index [BMI] 35.0-35.9, adult; Z88.1 Allergy status to other antibiotic agents
CPT/HCPCS: 36415-UA; 71045-TC; 80053-TC; 80061-TC; 81001-TC; 83036-90; 84443-TC; 85025-TC; 86592-TC; 93005; 94760; Z7610